=== PATIENT | female | born 1995 | race Two or more races ===

== ENCOUNTER 2024-04-10 22:51 | Outpatient (CLI) | payer OTHER ==
[~2024-04-10] VITALS: Ht 170.2 cm; Wt 80.7 kg
[2024-04-10 22:17] VITALS: BP 123/81
[2024-04-10] MEDS ORDERED: PRENATAL TABLE1 EAC1 (23:07)
[2024-04-10] MEDS ORDERED: RINGERS SOLUTION,LACTATED 1,000 ML IV SCH (23:15)
[2024-04-10 23:19] VITALS: BP 111/68; O2SAT 100
[2024-04-10] MEDS ORDERED: ACETAMINOPHEN 500 MG GEL..CAP PO ONE (23:30)
[2024-04-10 23:37] LABS: HEMATOCRIT 33.2 % (36.0-45.00); HEMOGLOBIN 11.5 g/dL (12.0-15.00); MEAN CELL VOLUME 88.1 fL (80.00-100.00); MEAN CORPUSCULAR HEMOGLOBIN 30.5 pg (27.00-32.0); MEAN CORPUSCULAR HGB CONC 34.6 g/dl (32.0-36.0); PH,URINE 6.5 (5.0-8.0); RED BLOOD COUNT 3.77 M/uL (4.00-6.00); RED CELL DISTRIBUTION WIDTH 13.3 % (11.5-14.5); URINE APPEARANCE Clear; URINE BILIRRUBIN Negative (NEGATIVE); URINE BLOOD Negative; URINE COLOR Yellow; URINE GLUCOSE Negative (NEGATIVE); URINE KETONE Negative (NEGATIVE); URINE LEUKOCYTE Small; URINE NITRATE Negative; URINE PROTEIN Negative (NEGATIVE); URINE UROBILINOGEN 0.2 E.U./dl
[2024-04-10 23:40] LABS: URINE BACTERIA 669.3 uL (0.0-1933); URINE EPITHELIAL CELLS 80.8 uL (0.0-38.8)
[2024-04-10 23:44] LABS: PLATELET COUNT 125 K/uL (150-450); URINE CAST 0.14 uL (0.0-1.40); URINE RBC 0.7 uL (0.0-20.8)
[2024-04-11 00:02] LABS: INR 0.94; PARTIAL THROMBOPLASTIN TIME 25.8 SECONDS (22.0-34.0); PROTHROMBIN TIME 10.3 SECONDS (9.0-11.5)
[2024-04-11 00:06] LABS: ALBUMIN 2.6 gm/dL (3.4-5.0); BILIRUBIN TOTAL 0.26 mg/dL (0.3-1.2); CALCIUM 9.2 mg/dL (8.5-10.1); CREATININE SERUM 0.61 mg/dL (0.55-1.02); GFR 116.79; POTASSIUM 4.76 mEq/L (3.5-5.1); TOTAL PROTEIN 5.6 gm/dL (6.4-8.2)
[2024-04-11 03:51] VITALS: BP 101/60
[2024-04-11 07:09] VITALS: BP 108/69
== END 2024-04-11 08:13 | disposition home or self-care (01) ==
LOC: LDR 22:51 → OBS/DEL 22:51 → LDR 04-11 08:13 → OBS/DEL 04-11 08:13 → EDSTATUS 04-29 14:04
PROVIDERS: ATTEND Obstetrics & Gynecology Maternal & Fetal Medicine
DX: O26.893 Other specified pregnancy related conditions, third trimester (principal); R11.2 Nausea with vomiting, unspecified; Z3A.35 35 weeks gestation of pregnancy

== ENCOUNTER 2024-04-24 03:42 | Inpatient (IN) | payer OTHER ==
[~2024-04-24] VITALS: Ht 170.2 cm; Wt 59.0 kg
[2024-04-24] VITALS (8 sets, daily range): BP systolic 117–157; BP diastolic 58–90; O2SAT 100
[~2024-04-24 03:42] MED LIST: PRENATAL TABLE1 EAC1
[2024-04-24] MEDS ORDERED: RINGERS SOLUTION,LACTATED 1,000 ML IV SCH (04:00)
[2024-04-24 06:22] LABS: PH,URINE 6.5 (5.0-8.0); URINE APPEARANCE Clear; URINE BILIRRUBIN Negative (NEGATIVE); URINE BLOOD Large; URINE COLOR Yellow; URINE GLUCOSE Negative (NEGATIVE); URINE KETONE Negative (NEGATIVE); URINE LEUKOCYTE Trace; URINE NITRATE Negative; URINE PROTEIN Negative (NEGATIVE); URINE UROBILINOGEN 0.2 E.U./dl
[2024-04-24 06:25] LABS: URINE BACTERIA 774.5 uL (0.0-1933); URINE EPITHELIAL CELLS 56.4 uL (0.0-38.8); URINE RBC 4.8 uL (0.0-20.8); URINE WBC 54.7 uL (0.0-23.2)
[2024-04-24 06:46] LABS: INR 0.94; PARTIAL THROMBOPLASTIN TIME 26.7 SECONDS (22.0-34.0); PROTHROMBIN TIME 10.3 SECONDS (9.0-11.5)
[2024-04-24 06:49] LABS: URINE CAST 0.14 uL (0.0-1.40)
[2024-04-24 07:01] LABS: ALBUMIN 2.9 gm/dL (3.4-5.0); BILIRUBIN TOTAL 0.28 mg/dL (0.3-1.2); CREATININE SERUM 0.73 mg/dL (0.55-1.02); GFR 94.93; GLOBULINA 3.3 G/DL (2.4-3.5); POTASSIUM 4.4 mEq/L (3.5-5.1); TOTAL PROTEIN 6.2 gm/dL (6.4-8.2)
[2024-04-24 07:50] LABS: HEMATOCRIT 35.6 % (36.0-45.00); MEAN CELL VOLUME 88.4 fL (80.00-100.00); MEAN CORPUSCULAR HEMOGLOBIN 29.8 pg (27.00-32.0); MEAN CORPUSCULAR HGB CONC 33.7 g/dl (32.0-36.0); RED BLOOD COUNT 4.02 M/uL (4.00-6.00); RED CELL DISTRIBUTION WIDTH 13.2 % (11.5-14.5)
[2024-04-24 07:53] LABS: PLATELET COUNT 123 K/uL (150-450)
[2024-04-24] MEDS ORDERED: OXYTOCIN 500 ML IV ONE (13:00)
[2024-04-24] MEDS ORDERED: OXYTOCIN 20 UNITS/1000ML RL PIGGYBAG IV ONE (13:22)
[2024-04-24] MEDS ORDERED: ERYTHROMYCIN BASE OPHT 1GM EACH TUBE OP ONE ×2 (13:22→15:30)
[2024-04-24] MEDS ORDERED: CHLORHEXIDINE GLUCONATE 120 ML BOTTLE TOP ONE ×2 (13:22→15:30)
[2024-04-24] MEDS ORDERED: LIDOCAINE HCL 1% 10ML VIAL ONE ×2 (13:23)
[2024-04-24] MEDS ORDERED: METHYLERGONOVINE MALEATE 0.2 MG/ML AMPUL ONE (14:20)
[2024-04-24] MEDS ORDERED: OxyCODONE HCL/APAP UD (PERCOCET) PO PRN (14:30)
[2024-04-24] MEDS ORDERED: OXYTOCIN 1,000 ML IV SCH (14:30)
[2024-04-24] MEDS ORDERED: METHYLERGONOVINE MALEATE 0.2 MG/ML AMPUL IM STA (15:22)
[2024-04-24] MEDS ORDERED: LIDOCAINE HCL 1% 10ML VIAL IJ ONE (15:30)
[2024-04-25] VITALS: BP 115/64
[2024-04-25 08:00] VITALS: BP 105/70
[2024-04-25 23:47] VITALS: BP 127/71
[2024-04-26 08:00] VITALS: BP 134/80
== END 2024-04-26 13:18 | disposition home or self-care (01) | DRG 807 ==
LOC: LDR 03:42 → OB/GYN 03:42
PROVIDERS: ADMIT Obstetrics & Gynecology Maternal & Fetal Medicine; ATTEND Obstetrics & Gynecology Maternal & Fetal Medicine
PROC: 10E0XZZ Delivery of Products of Conception, External Approach (ICD-10-PCS; principal; 2024-04-24)
PROC: 0UQG7ZZ Repair Vagina, Via Natural or Artificial Opening (ICD-10-PCS; 2024-04-24)
PROC: 4A1HXCZ Monitoring of Products of Conception, Cardiac Rate, External Approach (ICD-10-PCS; 2024-04-24)
DX: O71.4 Obstetric high vaginal laceration alone (principal); Z37.0 Single live birth; Z3A.37 37 weeks gestation of pregnancy